=== PATIENT | female | born 1990 | race Caucasian/White ===

== ENCOUNTER 2023-06-04 10:43 | Inpatient (IN) ==
[2023-06-04] MEDS ORDERED: Nicotine PATCH 7 MG/24 HR PATCH TRANSDERM ONE (11:21)
[2023-06-04 12:23] LABS: Urine Appearance Cloudy; Urine Bilirubin Negative (Negative); Urine Blood Negative (Negative); Urine Color Yellow; Urine Glucose Negative (Negative); Urine Ketones Trace (Negative); Urine Nitrite Negative (Negative); Urine Protein Negative (Negative); Urine Specific Gravity 1.004 (1.002-1.030); Urine Urobilinogen Negative (Negative)
[2023-06-04 12:50] LABS: ABS Eosinophils 0.5 10^3/uL (0.0-0.5); ABS Lymphocytes 2.5 10^3/uL (1.0-4.8); ABS Monocytes 0.7 10^3/uL (0.0-0.9); ABS Neutrophils 8.5 10^3/uL (1.5-7.6); ABS Nucleated RBC 0.01 10^3/ul; Eosinophil % 4.4 %; Hematocrit 40.8 % (35-45); Hemoglobin 13.9 g/dL (11.5-14.3); Lymphocyte % 20.1 %; Mean Corpuscular Hemoglobin 29.6 pg (27-33); Mean Corpuscular Volume 87.1 fL (80-97); Mean Platelet Volume 8.1 fL (7.5-11.2); Nucleated Red Blood Cells % 0.1 /100 WBC (0.0-0.4); Platelet Count 427 10^3/uL (150-450); Red Blood Count 4.68 10^6/uL (3.63-4.92); Red Cell Distribution Width 13.8 % (12-17); White Blood Count 12.2 10^3/uL (3.8-11.8)
[2023-06-04 13:13] LABS: Albumin 4.5 g/dL (3.2-5.2); Anion Gap 7 mmol/L (2-16); CO2 Carbon Dioxide 24 mmol/L (22-32); Chloride 107 mmol/L (101-111); Potassium 3.6 mmol/L (3.5-5.0); Sodium 138 mmol/L (135-145)
[2023-06-04 13:18] LABS: Acetaminophen < 15 mcg/mL; Alcohol, S < 13 mg/dL (<13); Salicylate < 2.50 mg/dL (<30)
[2023-06-04 13:19] LABS: ALT 50 U/L (7-52); AST 33 U/L (13-39); Albumin/Globulin Ratio 1.4 (1-3); Alkaline Phosphatase 46 U/L (35-149); Blood Urea Nitrogen 7 mg/dL (6-24); Creatinine, Serum 0.74 mg/dL (0.51-0.95); Globulin 3.2 g/dL (2-4); Glucose 110 mg/dL (70-100); Total Protein 7.7 g/dL (6.4-8.9); eGFR CKD-EPI 110.2 (>60)
[2023-06-04 13:21] LABS: Urine Benzodiazepine Screen None Detected (None Detect); Urine Cannabinoids Screen Presumptive Positive (None Detect); Urine Opiates Screen None Detected (None Detect)
[2023-06-04 13:53] LABS: HCG Pregnancy < 0.60 mIU/mL
[2023-06-04 13:59] LABS: TSH Ultra Thyroid Stim Horm 1.04 mcIU/mL (0.34-5.60)
[2023-06-04] MEDS: Al Hydrox/Mg Hydrox/Simet LIQ 30 ML UDC PO PRN (20:25)
[2023-06-05] MEDS: Al Hydrox/Mg Hydrox/Simet LIQ 30 ML UDC PO PRN ×3 (06:18→21:06)
[2023-06-05 08:45] LABS: HDL Cholesterol 34.4 mg/dL
[2023-06-05] MEDS: Nicotine PATCH 14 MG/24 HR PATCH TRANSDERM SCH (12:18)
[2023-06-05] MEDS: Venlafaxine XR 75 mg PO SCH (12:46)
[2023-06-05] MEDS: Nicotine GUM 2MG FRUIT FLAVOR PO PRN ×3 (13:35→21:40)
[2023-06-05] MEDS: Calcium Carb (TUMS) 500 mg CHEW TAB PO PRN (17:44)
[2023-06-06] MEDS: Nicotine GUM 2MG FRUIT FLAVOR PO PRN ×5 (03:43→22:11)
[2023-06-06] MEDS: Al Hydrox/Mg Hydrox/Simet LIQ 30 ML UDC PO PRN ×2 (03:56→22:13)
[2023-06-06] MEDS: Venlafaxine XR 75 mg PO SCH (07:37)
[2023-06-06] MEDS: Nicotine PATCH 14 MG/24 HR PATCH TRANSDERM SCH (07:39)
[2023-06-06] MEDS: Calcium Carb (TUMS) 500 mg CHEW TAB PO PRN (17:13)
[2023-06-07] MEDS: Nicotine GUM 2MG FRUIT FLAVOR PO PRN ×4 (03:54→17:18)
[2023-06-07] MEDS: Nicotine PATCH 14 MG/24 HR PATCH TRANSDERM SCH (07:33)
[2023-06-07] MEDS ORDERED: Venlafaxine XR 75 mg PO SCH (09:00)
[2023-06-07] MEDS: Al Hydrox/Mg Hydrox/Simet LIQ 30 ML UDC PO PRN (11:48)
[2023-06-08] MEDS: Al Hydrox/Mg Hydrox/Simet LIQ 30 ML UDC PO PRN ×3 (03:50→17:50)
[2023-06-08] MEDS: Nicotine GUM 2MG FRUIT FLAVOR PO PRN ×4 (08:29→21:06)
[2023-06-08] MEDS: Nicotine PATCH 14 MG/24 HR PATCH TRANSDERM SCH (09:06)
[2023-06-08] MEDS: Calcium Carb (TUMS) 500 mg CHEW TAB PO PRN ×2 (13:20→20:15)
[2023-06-09] MEDS: Nicotine GUM 2MG FRUIT FLAVOR PO PRN ×4 (00:04→21:23)
[2023-06-09] MEDS: Nicotine PATCH 14 MG/24 HR PATCH TRANSDERM SCH (07:28)
[2023-06-09] MEDS: Al Hydrox/Mg Hydrox/Simet LIQ 30 ML UDC PO PRN ×2 (13:03→22:10)
[2023-06-09] MEDS: Calcium Carb (TUMS) 500 mg CHEW TAB PO PRN (22:48)
[2023-06-10] MEDS: Al Hydrox/Mg Hydrox/Simet LIQ 30 ML UDC PO PRN (05:10)
[2023-06-10] MEDS: Nicotine PATCH 14 MG/24 HR PATCH TRANSDERM SCH (07:03)
[2023-06-10] MEDS: Nicotine GUM 2MG FRUIT FLAVOR PO PRN (07:04)
[2023-06-10 09:03] VITALS: BP 124/100
== END 2023-06-10 15:45 | disposition home or self-care (01) | DRG 753 ==
LOC: ED 10:43 → EDHOLD 14:32 → BSU 17:27
PROVIDERS: ADMIT Psychiatry & Neurology Psychiatry; ATTEND Psychiatry & Neurology Psychiatry